=== PATIENT | male | born 1960 | race Caucasian/White ===

== ENCOUNTER 2022-11-07 13:00 | Observation (INO) ==
[2022-11-07 13:08] VITALS: BMI 27.8
--- NOTE | 2022-11-07 13:54 | DI ---
EXAM: FRONTAL AND LATERAL VIEWS OF THE CHEST. HISTORY: Fluid retention. COMPARISON: Chest radiograph 04/20/2021. FINDINGS: Atherosclerotic calcifications of the aorta. Normal heart size. No acute consolidation. No pleural effusion or pneumothorax. Multilevel degenerative spondylosis and mild dextroconvex curvature. IMPRESSION: No acute process. Atherosclerosis.
[2022-11-07 14:05] LABS: BASOPHILS # (AUTO) 0.1 K/uL (0-0.2); BASOPHILS % (AUTO) 0.8 % (0.0-3.0); EOSINOPHILS # (AUTO) 0.2 K/ul (0.0-0.7); EOSINOPHILS % (AUTO) 3.3 % (0.0-7.0); HEMATOCRIT 40.2 % (42.0-52.0); HEMOGLOBIN 13.2 g/dl (14.0-18.0); IMMATURE GRANULOCYTE % (AUTO) 0.3 % (0.0-5.0); LYMPHOCYTES # (AUTO) 2.6 K/uL (0.60-3.4); LYMPHOCYTES % (AUTO) 36.4 (10.0-50.0); MEAN CORPUSCULAR HEMOGLOBIN 31.1 pg (27.0-31.0); MEAN CORPUSCULAR HGB CONC 32.8 (31.8-35.4); MEAN CORPUSCULAR VOLUME 94.8 fl (80.0-94.0); MONOCYTES # (AUTO) 0.4 K/uL (0.4-2.0); MONOCYTES % (AUTO) 5.5 (0-10); NEUTROPHILS # (AUTO) 3.9 K/ul (2.0-6.9); NEUTROPHILS % (AUTO) 53.7 % (42.2-75.2); PLATELET COUNT 275 10^3/uL (140-440); RDW COEFFICIENT OF VARIATION 13.2 % (11.6-14.8); RED BLOOD COUNT 4.24 10^6/ul (4.70-6.10); WHITE BLOOD COUNT 7.26 K/ul (4.2-10.2)
--- NOTE | 2022-11-07 14:10 | ED.PDOC ---
General ED Provider: Dr. SHERYL DANIELS DO Chief Complaint: Extremity Pain/Injury Stated Complaint: Patient is a 62 yo M here for "Whole body swelling" Patient arrives afebrile and vitally stable by POV He is alert and oriented x4 GCS 15 He is not answering questions about HPI in detail "I already told someone else I am swollen." Patient denies falls or injuries He denies new medicaiotns or recent surgeries He is a smoker with sleep apnea He denies drug use Patient states "I feel like I am getting sick my body aches." Patient denies chest pain or sob He denies hx of ACS or heart failure Time Seen by Provider: 11/07/22 13:10 Information Source: Patient Nursing and Triage Documentation Reviewed and Agree: Yes Review of Systems Review Of Systems Constitutional: Reports Malaise; Denies Chills or Fever Eyes: Denies Blurred vision or Vision change Ears, Nose, Mouth, Throat: Denies Ear pain or Ear discharge Respiratory: Denies Cough or Shortness of Breath Cardiac: Reports Edema; Denies Chest pain, Lightheadedness, Palpitations or Syncope GI: Denies Abdominal pain, Constipated or Diarrhea : Denies Dysuria or Discharge Musculoskeletal: Denies Back pain or Joint pain Skin: Denies Bruising or Lumps Neurological: Denies Anxiety or Depressed Endocrine: Denies Excessive sweating or Flushing Hematologic/Lymphatic: Reports No symptoms; Denies Anemia or Blood clots All Other Systems: Reviewed and Negative [facility] Medical History No known health problems Z78.9 - Other specified health status (ICD-10) Family History Other No known health problems Social History Smoking and tobacco status: Never smoker (was 2ppd now 1-2 cig/day(not 2ppd "for a long time")) History of recent travel: No Physical Exam Physical Exam Appearance: Reports Well-appearing, Well-nourished, Obese and Other (disheveled with dirty clothes) Ill-appearing: Not Applicable Pain Distress: Not Applicable Eyes: Reports YASMIN and EOMI ENT: Reports Ears normal and Nose normal Neck: Supple Respiratory: Reports Airway patent, Breath sounds equal and Wheezes (mild) Cardiovascular: Reports RRR, Pulses normal and No rub GI/: Reports Soft, Nontender and Other (central abdominal obesity) Musculoskeletal: Reports Normal strength, ROM intact and Edema (trace BL LE edema) Skin: Reports Warm, Dry and Other (L great toe with erythema and distal dorsal vessicle, no drainage no bleeding no lymhangitis) Neurological: Reports Sensation intact and Motor intact Psychiatric: Reports Affect appropriate and Mood appropriate Interpretation EKG Interpretation EKG Interpretation By: ED Physician Time of EKG #1: 13:45 Rate: Normal Rhythm: Sinus ST Segment: Normal Interpretation: NSR rate 70 no stemi no qt prolongation Radiology Interpretation Radiology Interpretation By: ED Physician Radiology Results: Negative Exam Interpreted: Other (L foot) Xray Comments: No FB no subcutaneous air Radiology Interpretation By: ED Physician Radiology Results: Negative Exam Interpreted: CXR Xray Comments: No rib fractures or pneumothroax Critical Care Note Critical Care Note Total Critical Care Time (mins): 0 Course Course 11/07/22 14:02 11/07/22 14:02 Orders, Labs, Meds: Lab Review 11/07/22 11/07/22 14:02 14:37 WBC 7.26 RBC 4.24 L Hgb 13.2 L Hct 40.2 L MCV 94.8 H MCH 31.1 H MCHC 32.8 RDW Coeff of Francis 13.2 Plt Count 275 Immature Gran % (Auto) 0.3 Neut % (Auto) 53.7 Lymph % (Auto) 36.4 [place] % (Auto) 5.5 Eos % (Auto) 3.3 Baso % (Auto) 0.8 Neut # (Auto) 3.9 Lymph # (Auto) 2.6 [place] # (Auto) 0.4 Eos # (Auto) 0.2 Baso # (Auto) 0.1 Immature Gran # (Auto) 0.0 Sodium 135.2 Potassium 2.82 L Chloride 99.3 Carbon Dioxide 31.7 H Anion Gap 7.02 BUN 2.1 L Creatinine 0.84 Estimated GFR (MDRD) 93.00 BUN/Creatinine Ratio 2.50 Glucose 87.1 Lactic Acid 1.52 Calcium 8.15 L Total Bilirubin 1.09 AST 37.6 ALT 15.8 Alkaline Phosphatase 52.3 L Troponin I < 0.012 NT-Pro-B Natriuret Pep 1160 H Total Protein 6.96 Albumin 3.83 Globulin 3.13 Albumin/Globulin Ratio 1.22 Urine Color Yellow Urine Clarity Clear Urine pH 6.0 Ur Specific [place] 1.010 Urine Protein Negative Urine Glucose (UA) Negative Urine Ketones Negative Urine Blood 1+ H Urine Nitrite Negative Urine Bilirubin Negative Urine Urobilinogen 2.0 H Ur Leukocyte Esterase Negative Urine Microscopic WBC 0-2 Ur Squamous Epith Cells 0-2 Hyaline Casts 5-10 Orders Category Date Time Status PLACE PATIENT OBSERVATION .TO MEDSURG (MONITORED BED ADMISSION 11/07/22 15:11 Active ) EKG-(ED ONLY) Stat CARDIO 11/07/22 13:27 Completed ACTIVITY .Early Mobilization for VTE Prevention CARE 11/07/22 15:11 Active INTAKE & OUTPUT Q8HR CARE 11/07/22 15:11 Active TELEMETRY MONITORING TELE CARE 11/07/22 15:11 Active VITAL SIGNS Q4H CARE 11/07/22 15:11 Active CARDIAC DIET DIETARY 11/07/22 Dinner Ordered BMP [BASIC METABOLIC PANEL] Routine LAB 11/07/22 19:19 Received CBC W/ AUTO DIFF DAILY@0600 LAB 11/08/22 06:00 Ordered CBC W/ AUTO DIFF DAILY@0600 LAB 11/09/22 06:00 Ordered CBC W/ AUTO DIFF Stat LAB 11/07/22 14:02 Completed COMPREHENSIVE METABOLIC PANEL DAILY@0600 LAB 11/08/22 06:00 Ordered COMPREHENSIVE METABOLIC PANEL DAILY@0600 LAB 11/09/22 06:00 Ordered COMPREHENSIVE METABOLIC PANEL Stat LAB 11/07/22 14:02 Completed LACTIC ACID Stat LAB 11/07/22 14:02 Completed MAGNESIUM DAILY@0600 LAB 11/08/22 06:00 Ordered NT-PROBNP(ED) Stat LAB 11/07/22 14:02 Completed TROPONIN I Stat LAB 11/07/22 14:02 Completed URINALYSIS C & S IF INDICATED Stat LAB 11/07/22 14:37 Completed Acetaminophen [Tylenol] Meds 11/07/22 15:11 Active 650 mg PO Q4H PRN Cephalexin [Keflex] Meds 11/07/22 15:05 Discontinued 500 mg PO ONCE ONE Clindamycin [Cleocin] Meds 11/07/22 21:00 Active 300 mg PO Q8HR Magnesium Sulfate Vial [Magnesium Sulfate 1 gm/2 ml Meds 11/07/22 15:05 Discontinued Vial] 1 gm IVP ONCE ONE Potassium Chloride [K-Dur] Meds 11/07/22 15:15 Discontinued 40 meq PO ONCE ONE Potassium Chloride [K-Dur] Meds 11/07/22 15:05 Discontinued 40 meq PO ONCE STA Potassium Chloride [Potassium Chloride 20 Meq/100 ml Meds 11/07/22 15:15 Discontinued Premix] 40 meq in 200 ml IV ONCE Potassium Chloride in 0.9%NaCl [Sodium Chloride 0.9%- Meds 11/07/22 15:05 Discontinued KCl 40Meq] 1,000 ml IV 250 mls/hr Sodium Chloride 0.9% [Sodium Chloride] 250 ml Meds 11/07/22 15:16 Active IV 30 mls/hr CXR [CHEST, 2 VIEWS PA & LAT] Stat RADS 11/07/22 13:27 Completed FOOT, LEFT 3 VIEWS Stat RADS 11/07/22 13:35 Completed Medications Generic Name Dose Route Start Last Admin Trade Name Freq PRN Reason Stop Dose Admin Acetaminophen 650 mg 11/07/22 15:11 Acetaminophen 325 Mg Tablet PO Q4H PRN Mild Pain Clindamycin HCl 300 mg 11/07/22 21:00 Clindamycin Hcl 150 Mg Capsule PO 11/10/22 20:59 Q8HR CELIA Sodium Chloride 250 mls @ 30 mls/hr 11/07/22 15:16 11/07/22 17:40 Sodium Chloride IV 11/07/22 23:35 30 mls/hr .Q8H20M ONE Administration Discontinued Medications Generic Name Dose Route Start Last Admin Trade Name Freq PRN Reason Stop Dose Admin Cephalexin 500 mg 11/07/22 15:05 11/07/22 16:23 Cephalexin 500 Mg Capsule PO 11/07/22 15:06 500 mg ONCE ONE Administration Potassium Chloride/Sodium Chloride 1,000 mls @ 250 mls/hr 11/07/22 15:05 11/07/22 17:42 Sodium Chloride 0.9%-Kcl 40meq IV 11/07/22 19:04 Not Given .Q4H STA Potassium Chloride 40 meq in 200 mls @ 50 mls/hr 11/07/22 15:15 11/07/22 17:40 Potassium Chloride 20 Meq/100 Ml Premix IV 11/07/22 19:14 50 mls/hr ONCE ONE Administration Magnesium Sulfate 1 gm 08/03/23 15:05 11/07/22 17:45 Magnesium Sulfate Vial 1 Gm/2 Ml Vial IVP 11/07/22 15:06 1 gm ONCE ONE Administration Potassium Chloride 40 meq 11/07/22 15:05 11/07/22 16:23 Potassium Chloride 20 Meq Tab PO 11/07/22 15:06 40 meq ONCE STA Administration Potassium Chloride 40 meq 11/07/22 15:15 11/07/22 16:23 Potassium Chloride 20 Meq Tab PO 11/07/22 15:16 Not Given ONCE ONE Vital Signs: Temp Pulse Resp BP Pulse Ox 11/07/22 13:02 99.2 F 67 18 107/70 98 MDM: Patient is a 62 yo M here for whole body aches and leg swelling Patient afebrile and vitally stable Hx from patient chart review by me Exam concerning for L great toe cellulitis Consults to Hospitalist Team WDX: Hypokalemia, elevated BNP, hypokalemia 2.8, trace pedal edema acute condition high complexity DDX: I considered sepsis, abscess, ACS but these are less likely SDOH: Patient underinsured but has PCP support Patient amenable to observation for tx or hypokalemia All questions answered Keflex for cellulitis Discharge Plan Discharge Patient Disposition: PLACED OBSERVATION Discharge Problem: Elevated brain natriuretic peptide (BNP) level, Generalized muscle ache, Discomfort, Acute hypokalemia, Cellulitis Did you review [place] [employer] for ALL controlled substances?: Not Applicable ED Provider: SHERYL DANIELS Condition: Fair Physician Progress Note: []
[2022-11-07 14:19] LABS: ALANINE AMINOTRANSFERASE 15.8 U/L (0-50); ALBUMIN 3.83 g/dL (3.5-5.0); ALKALINE PHOSPHATASE 52.3 U/L (56-119); ASPARTATE AMINO TRANSFERASE 37.6 U/L (17-59); BILIRUBIN,TOTAL 1.09 mg/dL (0.2-1.3); BLOOD UREA NITROGEN 2.1 mg/dL (9-20); CALCIUM 8.15 mg/dL (8.4-10.2); CARBON DIOXIDE 31.7 mmol/L (22-30.0); CHLORIDE 99.3 mmol/L (98-107); CREATININE 0.84 mg/dL (0.60-1.10); GLUCOSE 87.1 mg/dL (74-106); POTASSIUM 2.82 mmol/L (3.5-5.1); SODIUM 135.2 mmol/L (134.5-145); TOTAL PROTEIN 6.96 g/dL (6.3-8.2)
--- NOTE | 2022-11-07 14:19 | DI ---
EXAM: LEFT FOOT RADIOGRAPH TECHNIQUE: 3 views. Frontal, lateral, and oblique. HISTORY: Infection COMPARISON: None. FINDINGS: There is no fracture or dislocation. There is extensive edema overlying the anterior dorsum of the midfoot. No soft tissue gas or foreign body. There is no cortical destruction of the first digit or remaining structures to suggest osteom yelitis. There are large areas of calcification in the Achilles tendon and plantar fascia. There is arthropathy of the first MTP joint. The bones are somewhat sclerotic at the TMT joints whic h may reflect early Charcot arthropathy. There is a bony synostosis between the third and fourth met atarsals. IMPRESSION: 1. No radiographic evidence of osteomyelitis. There is soft tissue edema and other details as descr ibed above.
[2022-11-07 14:31] LABS: TROPONIN I < 0.012 ng/ml (0.0000-0.120)
[2022-11-07 14:48] LABS: BILIRUBIN,URINE Negative (NEGATIVE); CLARITY,URINE Clear (CLEAR); COLOR,URINE Yellow (YELLOW); GLUCOSE, URINE (UA) Negative (NEGATIVE); KETONES,URINE Negative (NEGATIVE); LEUKOCYTE ESTERASE ,URINE Negative (NEGATIVE); NITRITE,URINE Negative (NEGATIVE); PROTEIN,URINE Negative (NEGATIVE); URINE, BLOOD 1+ (NEGATIVE)
[2022-11-07 14:56] LABS: SQUAMOUS EPITHELIAL CELL,UR 0-2 (0-5); URINE WBC, MICROSCOPIC 0-2 (0-2)
[2022-11-07] MEDS ORDERED: MAGNESIUM SULFATE 1 GM/2 ML VIAL IVP ONE (15:05)
[2022-11-07] MEDS ORDERED: KEFLEX PO ONE (15:05)
[2022-11-07] MEDS ORDERED: K-DUR PO STA (15:05)
[2022-11-07] MEDS ORDERED: SODIUM CHLORIDE 0.9%-KCL 40MEQ 1,000 ML IV STA (15:05)
[2022-11-07] MEDS ORDERED: TYLENOL PO PRN (15:11)
[2022-11-07] MEDS ORDERED: POTASSIUM CHLORIDE 20 MEQ/100 ML PREMIX 40 MEQ/200 ML BAG IV ONE (15:15)
[2022-11-07] MEDS ORDERED: K-DUR PO ONE (15:15)
[2022-11-07] MEDS ORDERED: SODIUM CHLORIDE 250 ML IV ONE (15:16)
[2022-11-07 17:05] VITALS: RESP 16
[2022-11-07] MEDS ORDERED: MAGNESIUM SULFATE 1 GM/2 ML VIAL ONE (17:43)
--- NOTE | 2022-11-07 18:34 | PCM ---
Date of Service Date Seen by Provider: 11/07/22 Time Seen by Provider: 16:00 Admit Day/Time Admission Date: 11/07/22 Reason for Admission Chief Complaint: HYPOKALEMIA, HIGH BNP, LOWER EXT EDEMA Hospital Provider Hospital Provider: VENICE LEON, [facility] [place] Primary Care Physician Primary Care Physician: None History of Present Illness History of Present Illness: 62 yo male presented to the ER with complaints of lower leg swelling and redness. Patient states that the symptoms started a few days ago. No discharge noted. No fever. Denies any fever or chills at home. Denies any other symptoms other than weakness. Denies any pmh, but has not seen a doctor in "many years". Denies any chest pain or shortness of breath. Denies N/V/D. Case Discussed With Case Discussed With: Patient's case was discussed with the ER Physicians, Dr. Wiley. [facility] Medical History No known health problems Z78.9 - Other specified health status (ICD-10) Family History Other No known health problems Social History Smoking and tobacco status: Never smoker (was 2ppd now 1-2 cig/day(not 2ppd "for a long time")) History of recent travel: No Allergies Allergies Allergy/AdvReac Type Severity Reaction Status Date / Time hydrocodone bitartrate AdvReac Verified 11/07/22 16:18 [From Lortab] prednisone AdvReac Anxiety Verified 11/07/22 16:18 simvastatin AdvReac Verified 11/07/22 16:18 Current Medications Home Medications 1 [No Reported Medications] 11/07/22 [History Confirmed 11/07/22 Last Taken Unknown] Home Acetaminophen (Acetaminophen 325 Mg Tablet) 650 mg PO Q4H PRN PRN Reason: Mild Pain Clindamycin HCl (Clindamycin Hcl 150 Mg Capsule) 300 mg PO Q8HR CELIA Stop: 11/10/22 20:59 Potassium Chloride (Potassium Chloride 20 Meq/100 Ml Premix) 40 meq in 200 mls @ 50 mls/hr IV ONCE ONE Stop: 11/07/22 19:14 Last Admin: 11/07/22 17:40 Dose: 50 mls/hr Sodium Chloride (Sodium Chloride) 250 mls @ 30 mls/hr IV .Q8H20M ONE Stop: 11/07/22 23:35 Last Admin: 11/07/22 17:40 Dose: 30 mls/hr Discontinued Medications Cephalexin (Cephalexin 500 Mg Capsule) 500 mg PO ONCE ONE Stop: 11/07/22 15:06 Last Admin: 11/07/22 16:23 Dose: 500 mg Potassium Chloride/Sodium Chloride (Sodium Chloride 0.9%-Kcl 40meq) 1,000 mls @ 250 mls/hr IV .Q4H STA Stop: 11/07/22 19:04 Last Admin: 11/07/22 17:42 Dose: Not Given Magnesium Sulfate (Magnesium Sulfate Vial 1 Gm/2 Ml Vial) 1 gm IVP ONCE ONE Stop: 11/07/22 15:06 Last Admin: 11/07/22 17:45 Dose: 1 gm Potassium Chloride (Potassium Chloride 20 Meq Tab) 40 meq PO ONCE STA Stop: 11/07/22 15:06 Last Admin: 11/07/22 16:23 Dose: 40 meq Potassium Chloride (Potassium Chloride 20 Meq Tab) 40 meq PO ONCE ONE Stop: 11/07/22 15:16 Last Admin: 11/07/22 16:23 Dose: Not Given Review of Systems Constitutional: Reports Weakness Head: Reports Normocephalic Eyes: Reports No symptoms Ears: Reports No symptoms Nose: Reports No symptoms Mouth: Reports No symptoms Throat: Reports No symptoms Cardiovascular: Reports No symptoms and Edema (+1-2 nonpitting BLE) Respiratory: Reports No symptoms Gastrointestinal: Reports No symptoms Genitourinary: Reports No Symptoms Musculoskeletal: Reports No symptoms Dermatologic: Reports Skin Changes (redness to BLE) Endocrine: Reports No symptoms Hematology: Reports No symptoms Immunology: Reports No symptoms Neurological: Reports No symptoms Psychiatric: Reports No symptoms Physical examination Most Recent Vital Signs: Most Recent Vital Signs Temperature 98 F 11/07/22 16:35 Temperature Source Oral 11/07/22 16:35 Temperature Source Oral 11/07/22 13:02 Pulse Rate 67 11/07/22 16:35 Respiratory Rate 16 11/07/22 16:35 Blood Pressure 107/70 11/07/22 13:02 Blood Pressure Left Arm 112/64 11/07/22 16:35 Blood Pressure Position Supine 11/07/22 16:35 O2 Sat by Pulse Oximetry 98 11/07/22 16:35 Oxygen Delivery Method Room Air 11/07/22 16:35 Height 6 ft 11/07/22 16:35 Weight 205 lb 11/07/22 16:35 Telemetry Number 7 02/05/13 02:56 Telemetry Heart Rate 51 L 03/03/14 07:00 Telemetry SPO2 96 03/02/14 07:00 Appearance: Positive No Apparent Distress, Alert and Oriented x3, Ill-Appearing and Other (Disheveled) Skin: Positive Warm, Good Turgor, Good Color and Erythema (to BLE, no open areas, no ecchymosis, warmth noted) HEENT: Positive Normocephalic and PERRLA Neck: Positive Supple and Midline Trachea Chest/Lungs: Positive Symmetrical With Equal Breath Sounds, Clear to Auscultation Bilaterally and Good Air Movement all 4 Lung Hui Heart: Positive RRR and Pulses Normal GI/: Positive Soft, Nontender, Bowel Sounds Normal and No Distention Musculoskeletal: Positive Not Examined Extremities: Positive Intact Peripheral Pulses, Stable Joints Without Laxity, Good ROM in All Joints and Other (Feet covered in mud/dirt) Neurological: Positive Sensation Intact, Motor intact, Reflexes Intact, Alert, Oriented and Muscle Strength 5/5 in Upper and Lower Extremities Bilaterally Psychiatric: Positive Oriented x4, Appropriate Mood, Appropriate Affect, Intact Memory, Good Short-Term Recall, Good Long-Term Recall, Normal Judgement and Normal Insight Labs This Visit Labs This Visit: Labs This Visit 11/07/22 11/07/22 14:02 14:37 WBC 7.26 RBC 4.24 L Hgb 13.2 L Hct 40.2 L MCV 94.8 H MCH 31.1 H MCHC 32.8 RDW Coeff of Francis 13.2 Plt Count 275 Immature Gran % (Auto) 0.3 Neut % (Auto) 53.7 Lymph % (Auto) 36.4 [place] % (Auto) 5.5 Eos % (Auto) 3.3 Baso % (Auto) 0.8 Neut # (Auto) 3.9 Lymph # (Auto) 2.6 [place] # (Auto) 0.4 Eos # (Auto) 0.2 Baso # (Auto) 0.1 Immature Gran # (Auto) 0.0 Sodium 135.2 Potassium 2.82 L Chloride 99.3 Carbon Dioxide 31.7 H Anion Gap 7.02 BUN 2.1 L Creatinine 0.84 Estimated GFR (MDRD) 93.00 BUN/Creatinine Ratio 2.50 Glucose 87.1 Lactic Acid 1.52 Calcium 8.15 L Total Bilirubin 1.09 AST 37.6 ALT 15.8 Alkaline Phosphatase 52.3 L Troponin I < 0.012 NT-Pro-B Natriuret Pep 1160 H Total Protein 6.96 Albumin 3.83 Globulin 3.13 Albumin/Globulin Ratio 1.22 Urine Color Yellow Urine Clarity Clear Urine pH 6.0 Ur Specific [place] 1.010 Urine Protein Negative Urine Glucose (UA) Negative Urine Ketones Negative Urine Blood 1+ H Urine Nitrite Negative Urine Bilirubin Negative Urine Urobilinogen 2.0 H Ur Leukocyte Esterase Negative Urine Microscopic WBC 0-2 Ur Squamous Epith Cells 0-2 Hyaline Casts 5-10 Review Statement Review Statement: I have independently reviewed and interpreted the labs/EKGs/imaging that were ordered by the ER provider. I have reviewed all outside records that are annie ilable currently in our EMR including imaging/notes/labs from previous visits. Plan Plan: 1. Symptomatic Hypokalemia - replacing with 40 mEq KCL IV and 40 mEq PO, telemetry, repeat labs in am 2. Cellulitis to BLE - no open areas, no WBC count elevation; treating with clindamycin 300 mg TID x 10 days, checking CRP 3. Elevated BNP - lower leg swelling, no hypoxia, no acute need for echo, case management/discharge planning to schedule outpatient echo and PCP to follow-up DVT Prophylaxis: Up ad christine Time Spent: Greater than 80 minutes spent with patient, 50% of the time spent with this patient was devoted to counseling and coordination of care. Advanced Care Plannin minutes spent discussing advance care planning. Smoking Cessation: 5 minutes spent discussing smoking cessation. Disposition: Admit to: Med/Surg Observation Full Code Discussed Plan of Care with Dr. Tay Simmons. Medications Medication Orders: Medications Ordered Category Date Time Status Acetaminophen [Tylenol] Meds 11/07/22 15:11 Active 650 mg PO Q4H PRN Clindamycin [Cleocin] Meds 11/07/22 21:00 Active 300 mg PO Q8HR Potassium Chloride [Potassium Chloride 20 Meq/100 ml Meds 11/07/22 15:15 Active Premix] 40 meq in 200 ml IV ONCE Sodium Chloride 0.9% [Sodium Chloride] 250 ml Meds 11/07/22 15:16 Active IV 30 mls/hr
[2022-11-07 19:36] LABS: BLOOD UREA NITROGEN 2.5 mg/dL (9-20); CALCIUM 8.35 mg/dL (8.4-10.2); CARBON DIOXIDE 33.3 mmol/L (22-30.0); CREATININE 0.82 mg/dL (0.60-1.10); GLUCOSE 97.8 mg/dL (74-106); POTASSIUM 2.97 mmol/L (3.5-5.1); SODIUM 137.1 mmol/L (134.5-145)
[2022-11-07] MEDS: CLEOCIN PO SCH (20:39)
[2022-11-08] MEDS: CLEOCIN PO SCH ×2 (04:58→13:03)
[2022-11-08 05:00] VITALS: TEMP 98.8
[2022-11-08 05:09] LABS: BASOPHILS % (AUTO) 0.7 % (0.0-3.0); EOSINOPHILS # (AUTO) 0.3 K/ul (0.0-0.7); EOSINOPHILS % (AUTO) 5.4 % (0.0-7.0); HEMATOCRIT 35.7 % (42.0-52.0); HEMOGLOBIN 11.6 g/dl (14.0-18.0); IMMATURE GRANULOCYTE % (AUTO) 0.2 % (0.0-5.0); LYMPHOCYTES # (AUTO) 2.2 K/uL (0.60-3.4); LYMPHOCYTES % (AUTO) 41.2 (10.0-50.0); MEAN CORPUSCULAR HEMOGLOBIN 30.7 pg (27.0-31.0); MEAN CORPUSCULAR HGB CONC 32.5 (31.8-35.4); MEAN CORPUSCULAR VOLUME 94.4 fl (80.0-94.0); MONOCYTES # (AUTO) 0.4 K/uL (0.4-2.0); MONOCYTES % (AUTO) 8.2 (0-10); NEUTROPHILS # (AUTO) 2.4 K/ul (2.0-6.9); NEUTROPHILS % (AUTO) 44.3 % (42.2-75.2); PLATELET COUNT 253 10^3/uL (140-440); RDW COEFFICIENT OF VARIATION 13.1 % (11.6-14.8); RED BLOOD COUNT 3.78 10^6/ul (4.70-6.10); WHITE BLOOD COUNT 5.39 K/ul (4.2-10.2)
[2022-11-08 05:22] LABS: ALANINE AMINOTRANSFERASE 13.8 U/L (0-50); ALBUMIN 3.28 g/dL (3.5-5.0); ALKALINE PHOSPHATASE 48.1 U/L (56-119); ASPARTATE AMINO TRANSFERASE 33.8 U/L (17-59); BILIRUBIN,TOTAL 0.67 mg/dL (0.2-1.3); BLOOD UREA NITROGEN 3.1 mg/dL (9-20); CALCIUM 8.04 mg/dL (8.4-10.2); CARBON DIOXIDE 29.2 mmol/L (22-30.0); CHLORIDE 104.2 mmol/L (98-107); CREATININE 0.76 mg/dL (0.60-1.10); GLUCOSE 113.1 mg/dL (74-106); MAGNESIUM 2.18 mg/dL (1.6-2.3); POTASSIUM 3.11 mmol/L (3.5-5.1); SODIUM 137.2 mmol/L (134.5-145); TOTAL PROTEIN 6.14 g/dL (6.3-8.2)
[2022-11-08] MEDS ORDERED: K-DUR PO ONE ×2 (08:00→14:00)
[2022-11-08] MEDS ORDERED: SODIUM CHLORIDE 500 ML IV ONE (08:25)
[2022-11-08 11:16] LABS: AMPHETAMINE SCREEN,URINE NEGATIVE (NEGATIVE); BARBITURATE SCREEN,URINE NEGATIVE (NEGATIVE); BENZODIAZEPINES SCREEN,URINE NEGATIVE (NEGATIVE); CANNABINOID SCREEN,URINE NEGATIVE (NEGATIVE); COCAIN SCREEN,URINE NEGATIVE (NEGATIVE); METHADONE URINE SCREEN NEGATIVE (NEGATIVE); METHAMPHETAMINES SCREEN,URINE NEGATIVE (NEGATIVE); OPIATE SCREEN,URINE NEGATIVE (NEGATIVE); OXYCODONE URINE SCREEN NEGATIVE (NEGATIVE); PHENCYCLIDINE SCREEN,URINE NEGATIVE (NEGATIVE); PROPOXYPHENE URINE SCREEN NEGATIVE (NEGATIVE); TRICYCLIC ANTIDEPRESSANTS URIN NEGATIVE (NEGATIVE)
[2022-11-08 11:29] VITALS: BP 126/76; PULSE 70
[2022-11-08 13:30] LABS: BLOOD UREA NITROGEN 2.6 mg/dL (9-20); CALCIUM 7.92 mg/dL (8.4-10.2); CARBON DIOXIDE 28.1 mmol/L (22-30.0); CHLORIDE 104.9 mmol/L (98-107); CREATININE 0.7 mg/dL (0.60-1.10); GLUCOSE 104.5 mg/dL (74-106); POTASSIUM 3.4 mmol/L (3.5-5.1); SODIUM 136.5 mmol/L (134.5-145)
--- NOTE | 2022-11-08 19:14 | DCSUM ---
Admission Date Admission Date: 11/07/22 Discharge Date Discharge Date: 11/08/22 Admission Diagnosis Admission Diagnosis: Symptomatic Hypokalemia, Cellulitis Discharge Diagnosis Discharge Diagnosis: Symptomatic hypokalemia, Cellulitis Hospital Provider [facility] Summary of History and Physical Summary of History and Physical: 62 yo male presented to the ER with complaints of lower leg swelling and redness. Patient states that the symptoms started a few days ago. No discharge noted. No fever. Denies any fever or chills at home. Denies any other symptoms other than weakness. Denies any pmh, but has not seen a doctor in "many years". Denies any chest pain or shortness of breath. Denies N/V/D. Also reported upon exam that he felt weak. Hospital Course Subjective: Over course of stay, patient's potassium was replaced both oral and IV. This am it was found to be up to 3.1 from 2.8. He was given further oral potassium and level returned to normal range. No EKG changes were noted throughout stay. Patient was also treated for BLE cellulitis. Symptoms present x 2 days. Patient denied fever or other signs of infection. Legs did not exhibit drainage. No leukocytosis noted on cbc. Patient was started on clindamycin 300 mg TID x 10 days for MRSA coverage. Patient had disheveled appearance and refused to bathe while in the hospital. ER provider ordered BNP due to concern for CHF. Patient's legs showed mild edema with no pitting. He was not short of breath or hypoxic. Denied chest pain or pressure. Denied any other symptoms. Discussed on discharge extensively if he noticed a 3lb weight gain in a day or 5 lb gain in 1 week to see PCP or return to ER. Patient has not followed with PCP in "many years" per patient and he needs a water pill. Denied medical history on admission day 1 and today. Today, his BP was found to be low at 80s/40s and was given 500 mL BOLUS of NS which brought patient to normotensive state. Appearance: No Apparent Distress, Alert and Other (disheveled, foul smelling ) HEENT: MMM and Supple CVS: No Murmur and No Rubs Abdomen: Soft and Non-Tender Respiratory: No Dyspnea Extremities: No Calf Tenderness and Other (mild swelling, redness, and wamrth to BLE) Vital Signs: Most Recent Vital Signs Temperature 98.8 F 11/08/22 04:57 Temperature Source Oral 11/08/22 04:57 Temperature Source Oral 11/07/22 13:02 Pulse Rate 70 11/08/22 11:29 Respiratory Rate 16 11/08/22 11:29 Blood Pressure 126/76 11/08/22 11:29 Blood Pressure Mean 92 11/08/22 11:29 Blood Pressure Left Arm 112/64 11/07/22 16:35 Blood Pressure Location Left Arm 11/08/22 11:29 Blood Pressure Position Supine 11/08/22 11:29 O2 Sat by Pulse Oximetry 95 11/08/22 08:23 Oxygen Delivery Method Room Air 11/08/22 11:29 Height 6 ft 11/07/22 16:35 Weight 205 lb 11/07/22 16:35 Telemetry Type Remote Telemetry 11/08/22 07:00 Telemetry Monitoring Continues 11/08/22 07:00 Telemetry Number 7 02/05/13 02:56 Telemetry Heart Rate 64 11/08/22 01:00 Telemetry SPO2 96 03/02/14 07:00 EKG IL Interval 0.20 11/08/22 07:00 EKG QRS Interval 0.07 11/08/22 07:00 EKG QT Interval 0.32 11/08/22 01:00 Telemetry Strip Reading SR 11/08/22 07:00 Lab Results Last 24 Hours: 11/08/22 11/08/22 11/08/22 13:00 10:53 04:57 WBC 5.39 RBC 3.78 L Hgb 11.6 L Hct 35.7 L MCV 94.4 H MCH 30.7 MCHC 32.5 RDW Coeff of Francis 13.1 Plt Count 253 Immature Gran % (Auto) 0.2 Neut % (Auto) 44.3 Lymph % (Auto) 41.2 Erath % (Auto) 8.2 Eos % (Auto) 5.4 Baso % (Auto) 0.7 Neut # (Auto) 2.4 Lymph # (Auto) 2.2 Erath # (Auto) 0.4 Eos # (Auto) 0.3 Baso # (Auto) 0.0 Immature Gran # (Auto) 0.0 Sodium 136.5 137.2 Potassium 3.40 L 3.11 L Chloride 104.9 104.2 Carbon Dioxide 28.1 29.2 Anion Gap 6.90 6.91 BUN 2.6 L 3.1 L Creatinine 0.70 0.76 Estimated GFR (MDRD) 115.00 104.00 BUN/Creatinine Ratio 3.71 4.07 Glucose 104.5 113.1 H Calcium 7.92 L 8.04 L Magnesium 2.18 Total Bilirubin 0.67 AST 33.8 ALT 13.8 Alkaline Phosphatase 48.1 L Total Protein 6.14 L Albumin 3.28 L Globulin 2.86 Albumin/Globulin Ratio 1.14 Urine Opiates Screen Negative Ur Oxycodone Screen Negative Urine Methadone Screen Negative Ur Propoxyphene Screen Negative Ur Barbiturates Screen Negative U Tricyclic Antidepress Negative Ur Phencyclidine Scrn Negative Ur Amphetamine Screen Negative U Methamphetamines Scrn Negative U Benzodiazepines Scrn Negative Urine Cocaine Screen Negative U Cannabinoids Screen Negative 11/07/22 19:19 WBC RBC Hgb Hct MCV MCH MCHC RDW Coeff of Francis Plt Count Immature Gran % (Auto) Neut % (Auto) Lymph % (Auto) [place]ath % (Auto) Eos % (Auto) Baso % (Auto) Neut # (Auto) Lymph # (Auto) [place] # (Auto) Eos # (Auto) Baso # (Auto) Immature Gran # (Auto) Sodium 137.1 Potassium 2.97 L Chloride 100.0 Carbon Dioxide 33.3 H Anion Gap 6.77 BUN 2.5 L Creatinine 0.82 Estimated GFR (MDRD) 96.00 BUN/Creatinine Ratio 3.04 Glucose 97.8 Calcium 8.35 L Magnesium Total Bilirubin AST ALT Alkaline Phosphatase Total Protein Albumin Globulin Albumin/Globulin Ratio Urine Opiates Screen Ur Oxycodone Screen Urine Methadone Screen Ur Propoxyphene Screen Ur Barbiturates Screen U Tricyclic Antidepress Ur Phencyclidine Scrn Ur Amphetamine Screen U Methamphetamines Scrn U Benzodiazepines Scrn Urine Cocaine Screen U Cannabinoids Screen Discharge Instructions Discharge Planning: Discharge Planning > 40 minutes If patient is discharged with left ventricular systolic dysfunction: no Discharged with a beta piper? [] If no, why not? [] NA Discharged with an apurva/arb? [] If no, why not? [] NA Activity as tolerated Cardiac Diet Follow-up with new PCP Sonya Mejia on 11/15/22 at 12:45 pm Complete course of clindamycin 300 mg TID x 10 days to treat cellulitis of BLE Wash BLE with soap and water daily. Discharge Medications: Medications at Discharge (Home Meds & RX) 1 [No Reported Medications] 11/07/22 Discharge Plan Discharge Discharge Orders: Discharge Patient (ONCE); Ordered 11/08/22 Ordered By: LYDIA TURCIOS Activity Restrictions/Additional Instructions: written discharge instructions given to pt, pt discharged during downtime. Activity as tolerated Cardiac Diet Follow-up with new PCP Sonya Mejia on 11/15/22 at 12:45 pm Complete course of clindamycin 300 mg TID x 10 days to treat cellulitis of BLE Wash BLE with soap and water daily. YOU HAVE A HOSPITAL FOLLOW UP WITH THE [facility] ON FridayNovember AT 12:45. IT IS IMPORTANT FOR YOU TO ATTEND THIS APPOINTMENT TO MANAGE YOUR MEDICATIONS AND CONTINUED CARE. YOU CAN DISCUSS ESTABLISHING A PRIMARY CARE PHYSICIAN WITH THEM AT THAT TIME. SHOULD YOU HAVE ANY QUESTIONS YOU CAN CONTACT THEIR OFFICE AT [phone]. Patient Disposition: HOME SELF-CARE Prescriptions: No Action No Reported Medications Did you review [place] for ALL controlled substances?: Not Applicable Discussed opioids are addictive and Narcan is available by prescription or from pharmacy.: No Condition: Fair
== END 2022-11-08 14:30 | disposition home or self-care (01) ==
LOC: ED 13:00 → MEDSURG B 13:00
PROVIDERS: ADMIT Hospitalist; ATTEND Nurse Practitioner Family